=== PATIENT | female | born 1990 | race Caucasian/White ===

== ENCOUNTER → 2018-08-13 | Outpatient (CLI) | payer BC, MEDICAID, OTHER ==
[~2018-08-13] MED LIST: BREA1EAC5 MC; CIPR500T78 PO; DCS100C PO; HYDR-3720 PO; IBP800T PO; IOHEXOL 240 MGI/ML 20 ML (OMNIPAQUE) VIAL IV ONE; METR500T PO; OXYC1TAB12 PO
--- NOTE | 2018-08-13 14:07 | Diagnostic Imaging Report ---
INDICATION: Dysmenorrhea. PROCEDURE: The procedure was performed by Dr. Faith, using 20 seconds of fluoroscopy. 50 cc of Omnipaque 240 was injected into patient's indwelling catheter. Spot films over the pelvis were obtained. FINDINGS: There is opacification of the endometrial canal and bilateral fallopian tubes. There appears to be spillage of contrast from bilateral fimbrial ends. No endometrial filling defects are seen. IMPRESSION: Bilateral fallopian tube patency. Dictated by: Dictated on workstation # [id number]
--- NOTE | 2018-08-14 00:43 | OPERATIVE REPORT ---
DATE OF SERVICE: 08/13/2018 PREOPERATIVE DIAGNOSES: History of endometriosis and pelvic pain/dysmenorrhea. POSTOPERATIVE DIAGNOSES: History of endometriosis and pelvic pain/dysmenorrhea. OPERATIVE PROCEDURE: Placement of the hystersalpingogram catheter and installation of the contrast material. OPERATIVE DESCRIPTION: With the patient supine on the x-ray table, the patient was placed in the dorsal lithotomy position and speculum placed in the vagina. The cervix was swabbed with Betadine and then the HSG catheter that had been primed with omnipaque was inserted through the cervix into the uterus. The bulb was filled with 1.5 mL of air. The patient was repositioned supine and then under continuous fluoroscopy, the contrast material was slowly instilled. There was free spill noted bilaterally. The uterine cavity was normal in appearance. The balloon was deflated and the cavity filled completely with contrast material. Again, the x-ray appearance of the endometrial cavity was of normal appearance. The patient tolerated the procedure very well. The catheter and the placement guide was removed from the vagina. The patient was given return to clinic precautions and instructions and the patient was discharged home with follow up in clinic. Job ID: [id number] DocumentID: [id number] Dictated Date: 08/13/2018 14:00:55 [place] Date: 08/14/2018 00:42:28 Dictated By: NEERU LANGE MD
== END ==
LOC: RAD 11:57
PROVIDERS: ATTEND Obstetrics & Gynecology
DX: N97.1 Female infertility of tubal origin (principal)
CPT/HCPCS: 58340; 74740